=== PATIENT | male | born 1995 | race African-American/Black ===

== ENCOUNTER 2018-03-13 05:00 | Emergency (ER) | payer MEDICAID, OTHER ==
[~2018-03-13] VITALS: Ht 175.3 cm; Wt 73.0 kg
[2018-03-13] MEDS ORDERED: KETOROLAC 60MG/2ML VIAL IM ONE (06:45)
[2018-03-13] MEDS ORDERED: BACITRACIN ZINC OINT UDPKT TOP ONE (06:45)
[2018-03-13] MEDS ORDERED: IBUPROFEN 800MG TABLET PO ONE (07:15)
[2018-03-13 08:09] VITALS: BP 120/81
== END 2018-03-13 08:12 | disposition home or self-care (01) ==
LOC: ER 05:00
DX: S01.112A Laceration without foreign body of left eyelid and periocular area, initial encounter (principal); M54.5 Low back pain; W06.XXXA Fall from bed, initial encounter; Y93.89 Activity, other specified; Y92.89 Other specified places as the place of occurrence of the external cause; Y99.8 Other external cause status
CPT/HCPCS: 12011; 99283

== ENCOUNTER 2018-03-16 14:30 | Emergency (ER) | payer MEDICAID ==
[~2018-03-16] VITALS: Ht 175.3 cm; Wt 73.0 kg
[2018-03-16 15:01] VITALS: BP 112/62
== END 2018-03-17 | disposition left against medical advice (07) ==
LOC: ER 17:29
DX: G89.29 Other chronic pain (principal); M54.5 Low back pain
CPT/HCPCS: 99281

== ENCOUNTER 2018-04-23 12:01 | Emergency (ER) | payer MEDICAID ==
[~2018-04-23] VITALS: Ht 177.8 cm; Wt 70.0 kg
[2018-04-23 12:16] VITALS: BP 124/80
[2018-04-23] MEDS ORDERED: TETANUS, DIPHTHERIA, PERTUSSIS VAC/PF 0.5ML (>7YR OLD) IM ONE (14:45)
[2018-04-23] MEDS ORDERED: LIDOCAINE HCL/PF 1% 10 MG/ML 5ML VIAL IJ NR (16:05)
== END 2018-04-23 16:44 | disposition home or self-care (01) ==
LOC: ER 13:29
DX: S61.412A Laceration without foreign body of left hand, initial encounter (principal); W25.XXXA Contact with sharp glass, initial encounter; Y93.89 Activity, other specified; Y92.9 Unspecified place or not applicable
CPT/HCPCS: 12002; 73130; 90471; 99284; Z7610

== ENCOUNTER 2020-02-10 00:52 | Emergency (ER) | payer MEDICAID ==
[~2020-02-10] VITALS: Ht 175.3 cm; Wt 85.1 kg
[2020-02-10] MEDS ORDERED: IBUPROFEN 600MG TABLET PO ONE (01:45)
[2020-02-10] MEDS ORDERED: BACITRACIN ZINC OINT UDPKT TOP ONE (01:45)
[2020-02-10] MEDS ORDERED: LIDOCAINE HCL/PF 1% 10 MG/ML 5ML VIAL IJ ONE (01:45)
[2020-02-10 02:11] VITALS: BP 127/84
== END 2020-02-10 02:52 | disposition home or self-care (01) ==
LOC: ER 00:52
DX: S01.511A Laceration without foreign body of lip, initial encounter (principal); V49.49XA Driver injured in collision with other motor vehicles in traffic accident, initial encounter; Y93.89 Activity, other specified; Y92.488 Other paved roadways as the place of occurrence of the external cause; R03.0 Elevated blood-pressure reading, without diagnosis of hypertension
CPT/HCPCS: 12011; 99282; J3490